=== PATIENT | female | born 1960 | race Caucasian/White ===

== ENCOUNTER 2017-06-09 09:51 | Day surgery (SDC) | payer OTHER ==
[2017-05-28 18:58] VITALS: BMI 42.9
[2017-06-09] MEDS: PHENYLEPHRINE 2.5% OPHTH SOLN 15 ML BOTTLE ONE ×5 (10:45→11:05)
[2017-06-09] MEDS: CYCLOPENTOLATE HCL 1% OPHTH SOLN 2 ML BOTTLE ONE ×5 (10:45→11:05)
[2017-06-09] MEDS: TROPICAMIDE 1% OPHTH SOLN 15 ML BOTTLE ONE ×5 (10:45→11:05)
[2017-06-09] MEDS: KETOROLAC TROMETHAMINE 0.5% 5 ML BOTTLE OPTHALMIC ONE ×5 (10:45→11:05)
[2017-06-09] MEDS: GENTAMICIN SULFATE 0.3% OPHTHALMIC (EYE DROPS) 5ML BOTTLE ONE ×2 (10:45→11:05)
[2017-06-09] MEDS ORDERED: ACETAMINOPHEN 325 MG TABLET (FP) PO PRN (10:54)
[2017-06-09] MEDS ORDERED: MIDAZOLAM HCL 2 MG/2 ML SINGLE DOSE VIAL ONE (11:39)
[2017-06-09] MEDS ORDERED: ONDANSETRON 4 MG/2 ML VIAL IVPUSH PRN (11:41)
[2017-06-09] MEDS ORDERED: LACTATED RINGERS SOLUTION 1,000 ML IV SCH (11:45)
[2017-06-09] MEDS ORDERED: LIDOCAINE HCL 2% JELLY 10 ML CARTRIDGE ONE (12:42)
[2017-06-09] MEDS ORDERED: TETRACAINE 0.5% OPHTH SOLN 2 ML BOTTLE ONE (12:42)
[2017-06-09] MEDS ORDERED: ACETYLCHOLINE 1:100 INTRA-OCUL 20 MG/2 ML KIT ONE (12:43)
[2017-06-09] MEDS ORDERED: ACETAMINOPHEN 325 MG TABLET (FP) ONE (13:57)
[2017-06-09 14:38] VITALS: BP 139/61; PULSE 79; TEMP 97.7
--- NOTE | 2017-06-10 10:04 | OP ---
DATE OF OPERATION: 06/09/2017 TITLE OF PROCEDURE: Planned extracapsular cataract extraction, phacoemulsification, and insertion of posterior chamber lens implant, right eye. SURGEON: Mylene Arriaga MD WELLNESS PROGRAM ADMINISTRATOR SURGEON: Mylene Arriaga MD ANESTHESIA: Local standby. ANESTHESIOLOGIST: Gayle Jackson MD COMPLICATIONS: None. PREOPERATIVE DIAGNOSIS: Cataract, right eye. POSTOPERATIVE DIAGNOSIS: Cataract, right eye. FINDINGS AND PROCEDURE: After successful peribulbar anesthesia was given to the right eye, the patient was prepped and draped in the usual manner to expose the right eye. A lid speculum was inserted after the Tegaderm strips were placed over the eyelids, and attention was focused to the superior fornix base area where a 12-mm flap was fashioned, followed by a crescent blade of 3 mm, which was dissecting anterior into clear cornea, and then, a 3-mm blade was used to enter the anterior chamber. The anterior chamber was filled with saline and Provisc, and an anterior capsulotomy was performed in can-human services worker fashion, followed by phacoemulsification of the entire nucleus for approximately 1 minute time, followed by irrigation and aspiration of all cortical material, followed by injection of Provisc to deepen the posterior chamber. The posterior capsule was intact with a red reflex present. Attention was focused to the implant which was inspected carefully, found to be free of defects, debris, and flaws. It was folded, placed in the Provisc-filled cartridge, the cartridge in the injector, and the implant was injected into the eye such that the inferior haptic was in the inferior capsular bag and the superior haptic in the superior capsular bag and rotated into the horizontal position with a Sinskey hook. The Provisc was aspirated out and replaced with Miochol, Miostat, and BSS. The wound was closed with a single interrupted 2-0 Ethilon suture and tested for leakage, and none was found. The conjunctival-tenon was reapproximated. At this point, the implant was fixated in the capsular bag, centrally located, with a round pupil, intact posterior capsule, and a red reflex present. Topical Betoptic S and Maxitrol ophthalmic suspensions were placed, as was bacitracin and polymyxin B ophthalmic ointment. Then, the Tegaderm strips and the lid speculum were removed from the lids. The lids were closed and a patch and shield placed on the eye. The patient was then discharged from the operating room to the recovery area in good condition, having tolerated the procedure well. MYLENE ARRIAGA M.D. [facility]/[id number]
== END 2017-06-09 14:35 | disposition home or self-care (01) ==
LOC: FASU 09:51
PROVIDERS: ATTEND Ophthalmology
PROC: 08RJ3JZ Replacement of Right Lens with Synthetic Substitute, Percutaneous Approach (ICD-10-PCS; principal; 2017-06-09 13:10)
DX: H26.9 Unspecified cataract (principal)

== ENCOUNTER 2017-10-06 10:24 | Day surgery (SDC) | payer OTHER ==
[2017-10-05 14:22] VITALS: BMI 41.3
[2017-10-06 15:15] VITALS: BP 112/60; PULSE 62; TEMP 97.8
== END 2017-10-06 15:15 | disposition home or self-care (01) ==
LOC: FASU 10:24
PROVIDERS: ATTEND Ophthalmology
PROC: 08RK3JZ Replacement of Left Lens with Synthetic Substitute, Percutaneous Approach (ICD-10-PCS; principal; 2017-10-06)
DX: H25.89 Other age-related cataract (principal)